=== PATIENT | male | born 1975 | race African-American/Black ===

== ENCOUNTER 2017-09-04 09:15 | Emergency (ER) | payer SELFPAY ==
[2017-09-04] MEDS ORDERED: Acetaminophen 500 MG TAB ONE (09:43)
[2017-09-04] MEDS ORDERED: Ibuprofen 800 MG TAB ONE (09:43)
== END 2017-09-04 10:19 | disposition home or self-care (01) ==
LOC: ERS 09:15
DX: M79.672 Pain in left foot (principal); M79.671 Pain in right foot; M62.838 Other muscle spasm
CPT/HCPCS: 99283

== ENCOUNTER 2017-11-29 03:34 | Inpatient (IN) | payer SELFPAY ==
[2017-11-29] MEDS ORDERED: Ondansetron ODT 8 MG TAB ONE (04:01)
[2017-11-29 04:07] LABS: #Lymphocytes 1.3 thou/uL (1.20-3.40); #Monocytes 0.5 thou/uL (0.11-0.59); #Neutrophils 9.4 thou/uL (1.40-6.50); %Basophils 0.3 % (0.0-1.0); %Eosinophils 0.2 % (0.0-10.0); %Lymphocytes 11.5 % (21.0-51.0); %Monocytes 4.7 % (0.0-10.0); %Neutrophils 83.4 % (42.0-75.0); Hemoglobin 17.2 g/dL (14.0-18.0); Mean Corpuscular HGB CONC 35.5 g/dL (32.0-36.0); Mean Corpuscular Hemoglobin 31.9 pg (27.0-31.0); Mean Corpuscular Volume 89.9 fL (78.0-98.0); Mean Platelet Volume 6.6 fL (7.4-10.4); Platelet Count 356 thou/uL (130-400); RBC Distribution Width 11.6 % (11.5-14.5); Red Blood Cell (RBC) Count 5.39 mill/uL (4.70-6.10); White Blood Cell (WBC) Count 11.3 thou/uL (4.8-10.8)
[2017-11-29 04:26] LABS: ALT (SGPT) 20 U/L (8-55); AST (SGOT) 24 U/L (5-34); Albumin 6.2 g/dL (3.5-5.0); Alkaline Phosphatase 71 U/L (40-150); Anion Gap 23 mmol/L (10-20); BUN (Urea Nitrogen) 34 mg/dL (8.9-20.6); Bilirubin, Total 0.5 mg/dL (0.2-1.2); CK (CPK) 365 U/L (30-200); Calc. Creatinine Clearance 0 mL/min (70-130); Calcium 10.8 mg/dL (7.8-10.44); Carbon Dioxide 20 mmol/L (22-29); Chloride 100 mmol/L (98-107); Estimated GFR-MDRD 24; Globulin 5.1 g/dL (2.4-3.5); Glucose 107 mg/dL (70-105); Protein, Total 11.3 g/dL (6.0-8.3); Sodium 135 mmol/L (136-145)
[2017-11-29 04:34] LABS: Potassium 7.9 mmol/L (3.5-5.1)
[2017-11-29] MEDS ORDERED: Dextrose 50% Abboject 50 ML SYRINGE ONE (04:41)
[2017-11-29] MEDS ORDERED: Sodium Bicarb 50 MEQ/50 ML Abboject 8.4% SYRINGE ONE ×2 (04:41→07:48)
[2017-11-29] MEDS ORDERED: Insulin Regular 300 UNITS/3 ML VIAL ONE (04:41)
[2017-11-29] MEDS ORDERED: Calcium Gluc 4.6 MEQ/10 ML (100 MG/ML) ONE ×2 (04:41→07:43)
[2017-11-29] MEDS ORDERED: Acetaminophen 325 MG TAB PO PRN (05:15)
[2017-11-29] MEDS ORDERED: Ondansetron HCl/PF 4 MG/2 ML Vial IVP PRN (05:15)
[2017-11-29] MEDS ORDERED: Sodium Chloride 0.9% 1,000 ML IV SCH ×3 (05:30→12:00)
[2017-11-29] MEDS ORDERED: Dextrose 50% Abboject 50 ML SYRINGE SLOW IVP PRN (06:14)
[2017-11-29] MEDS ORDERED: Insulin Regular 300 UNITS/3 ML VIAL SC PRN (06:14)
[2017-11-29] MEDS ORDERED: Dextrose 5% in Water 1,000 ML IV PRN (06:14)
[2017-11-29] MEDS ORDERED: Dextrose 5% in Water 1,000 ML IV SCH (06:15)
[2017-11-29] MEDS ORDERED: Dextrose 5 % And 0.9 % NaCl 1,000 ML IV SCH (06:45)
[2017-11-29 07:27] LABS: Albumin 6.2 g/dL (3.5-5.0); Anion Gap 25 mmol/L (10-20); BUN (Urea Nitrogen) 35 mg/dL (8.9-20.6); BUN/Creatinine Ratio 10.12; Calc. Creatinine Clearance 0 mL/min (70-130); Calcium 10.7 mg/dL (7.8-10.44); Carbon Dioxide 20 mmol/L (22-29); Chloride 100 mmol/L (98-107); Estimated GFR-MDRD 24; Glucose 85 mg/dL (70-105); Phosphorus 4.6 mg/dL (2.3-4.7); Sodium 137 mmol/L (136-145)
[2017-11-29 07:33] LABS: Potassium 7.7 mmol/L (3.5-5.1)
[2017-11-29] MEDS ORDERED: Sodium Bicarbonate 2.5 MEQ/5 ML VIAL ONE (07:43)
--- NOTE | 2017-11-29 08:34 | ULT ---
BILATERAL RENAL ULTRASOUND: Date: 11/29/17 CLINICAL HISTORY: Acute renal failure. FINDINGS: There is no hydronephrosis involving the kidneys. No suspicious renal lesions. Documented left renal length is 11.5 cm and right renal length is 11.6 cm. Pre-void bladder volume is 134 cm2. IMPRESSION: No overt hydronephrosis of either kidney. POS: [facility]
[2017-11-29] MEDS ORDERED: Heparin 5,000 UNITS/ML VIAL SC SCH (09:00)
[2017-11-29 09:52] LABS: Hemoglobin A1c 5.8 % (4.0-6.0)
[2017-11-29 10:18] VITALS: BMI 22.1
[2017-11-29 10:26] LABS: Actual Bicarbonate (HCO3a) 22.4 mEq/L (22-28); Base Excess (BEa) -2.3 mEq/L (-2.0 to +3.0); CO2 Tension 38.2 mmHg (35.0-45.0); O2 Tension (PaO2) 75.7 mmHg (80.0-100.0); pH, Arterial 7.38 (7.35-7.45)
[2017-11-29 10:27] LABS: Anion Gap 12 mmol/L (10-20); BUN (Urea Nitrogen) 26 mg/dL (8.9-20.6); Calc. Creatinine Clearance 51 mL/min (70-130); Calcium 8.9 mg/dL (7.8-10.44); Carbon Dioxide 24 mmol/L (22-29); Chloride 107 mmol/L (98-107); Estimated GFR-MDRD 47; Glucose 95 mg/dL (70-105); Potassium 4.1 mmol/L (3.5-5.1); Sodium 139 mmol/L (136-145)
[2017-11-29 10:27] LABS: Calcium, Ionized 1.2 mmol/L (1.12-1.30); Puncture Site RRA
[2017-11-29 11:56] LABS: Bilirubin Negative (Negative); Blood, Urine Negative (Negative); Clarity CLEAR (Clear); Glucose, Urine (Dipstick) Negative (Negative); Leukocyte Negative (Negative); Nitrite Negative (Negative); Protein, Urine (Dipstick) Negative (Neg-Trace); Specific Gravity, Urine 1.017 (1.002-1.036)
[2017-11-29 12:07] LABS: Cocaine Metabolite Screen Detected (NotDetected); Medtox Reader # READER 4; Phencyclidine (PCP) Not Detected (NotDetected); THC/Cannabinoid Screen Not Detected (NotDetected)
[2017-11-29 12:08] LABS: Amphetamine Not Detected (NotDetected); Barbiturates Screen Not Detected (NotDetected); Benzodiazepine Screen Not Detected (NotDetected); Medtox Control Line Valid? VALID (VALID); Methadone Not Detected (NotDetected); Methamphetamine Not Detected (NotDetected); Opiate Screen Not Detected (NotDetected); Oxycodone Screen Not Detected (NotDetected); Tricyclic Screen Not Detected (NotDetected)
--- NOTE | 2017-11-29 12:14 | HP ---
CODE STATUS: FULL CODE. TIME OF EVALUATION: 5:50 a.m. PRIMARY CARE PHYSICIAN: None. CHIEF COMPLAINT: Generalized muscle aches. HISTORY OF PRESENT ILLNESS: This is a 42-year-old male patient with significant past medical history , came to the hospital after having severe generalized muscle aches, the symptoms have been present f or the past 2-3 days. He got some improvement and yesterday he developed again severe symptoms, no c lear triggers, no alleviating factors. Patient reported that he had been working outside, not drinki ng appropriately enough fluids. Symptoms were reported as severe. Initial lab seen in the ER was do ne. Potassium was 7.9, creatinine 3.3. Aggressive hydration has been started. Dr. Vogt is being consulted for recommendations. Treatment for hyperkalemia has been given and repeat potassium around 7 a.m. REVIEW OF SYSTEMS: Constitutional: No fever or chills. Patient has generalized weakness, generaliz ed body aches. Respiratory: No cough, sputum production, shortness of breath. Cardiovascular: No chest pain, palpitation, shortness of breath. Gastrointestinal: No nausea, vomiting, diarrhea. Pat ient reported abdominal pain, cramps like. Central Nervous System: No dizziness, headache, or feeli ng lightheaded. Genitourinary: No burning on urination. Extremities: No leg swelling. All other systems were reviewed and negative except for the findings mentioned above. PAST MEDICAL HISTORY: None reported. SOCIAL HISTORY: No drugs or alcohol. PAST SURGICAL HISTORY: Right hand surgery long time ago. FAMILY HISTORY: Mother, CVA. Father, no medical problems. ALLERGIES: No known drug allergies. REPORTED MEDICATIONS: None. PHYSICAL EXAMINATION: VITAL SIGNS: On presentation, blood pressure 156/87 with heart rate 78, respiratory rate of 16, temp erature 98. GENERAL APPEARANCE: Patient is alert, oriented, in no acute distress. HEENT: Eyes: Normocephalic, conjunctivae. Dry oral mucosa. anicteric. NECK: No JVD. RESPIRATORY: Bilateral air entry. No rales, no wheezing. Symmetrical expansion. CARDIOVASCULAR: Normal rate, regular rhythm. No murmurs, no gallop. No edema. ABDOMEN: Soft, normal bowel sounds. MUSCULOSKELETAL: The patient has generalized muscle contractions, aches, tenderness. SKIN: Warm and intact. No pallor, no rash, no redness. NEUROLOGIC: Baseline sensory. No evidence of any new focal weakness. Speech is baseline. Cranial nerves seem to be intact. PSYCHIATRIC: Good mood. No anxiety. Oriented, optimal judgment. LABORATORY AND DIAGNOSTIC DATA: Reviewed. The patient has a white count 11, hemoglobin 17, platelet count 356,000. Chemistry: Sodium 135, potassium 7.9, chloride 100, carbon dioxide 20, anion gap 23 , BUN 34, creatinine 3.3, GFR 24, glucose __, the repeat one was 41 after giving the insulin for brandie tment , calcium 10.8. CK 365. Serum total protein 11, albumin 6.2, globulin 5.1. EKG was revi ewed and discussed with the performing physician from ER. Patient has normal sinus rhythm with aníbal d T waves. No other significant findings. ASSESSMENT AND PLAN: Critical care time for this patient more than 35 minutes in bedside assessment, coordination of care, review elaboration of records. 1. Severe hyperkalemia, likely secondary to dehydration, acute kidney failure, potassium now 7, rece iving treatment for both dehydration and hyperkalemia, Dr. Duenas has been called, we will repeat potassium, depending on the results, we will plan for further treatment. We will follow Dr. Cam rios's recommendations. 2. Acute kidney injury, significant elevation of creatinine with decrease of GFR, likely secondary t o dehydration, will hydrate, monitor kidney function, Dr. Duenas has been consulted. We will fol low recommendations. 3. Avoid nephrotoxic agents. 4. Hyponatremia, likely secondary to insulin given for treatment of hyperkalemia and acute kidney in jury, patient is fully oriented, we will put the patient on the D5 NS for now, will monitor care. 5. Deep vein thrombosis prophylaxis. 6. Dehydration. The patient has hyperkalemia, hypercalcemia, elevated proteins and albumin, acute k idney injury, dry mucosa, continue IV fluids.
[2017-11-29] MEDS: Sodium Chloride 0.45% 1,000 ML IV SCH ×2 (13:33→20:57)
--- NOTE | 2017-11-29 14:56 | PDOC.EVN ---
Event Note - Event Note Event Note: pt seen and examined.chart reviewed in detail.case discussed w nephrology NAD CTA b/l. RRR labs reviewed. repeat K NL. leanne dehydration with or without cocaine induced vasospasm Checked UA and no Proteinuria. check SPEP/UPEP given hypercalcemia and hyperproteinemia. cont IVF. HD stable. transfer out of CCU am labs
--- NOTE | 2017-11-29 22:14 | CON ---
DATE OF CONSULTATION: 11/29/2017 HISTORY OF PRESENT ILLNESS: Mr. Buck is a 42-year-old male, who presented with severe myalgias, present for several days. He says he has been working out in the heat, not drinking enough liquids. He also has a drug screen positive for cocaine, but it is unclear to me whether where and when this was fitted into the picture. Regular lab showed an elevated potassium this morning. Blood gas was drawn when I arrived to do the consult and his potassium was just barely over 4 via blood gas. He has been hydrated. PAST MEDICAL HISTORY: Otherwise unremarkable. He says he has been healthy. FAMILY HISTORY: Positive for vascular disease. SOCIAL HISTORY: Obviously he is using drugs, denies being a smoker or drinker. REVIEW OF SYSTEMS: Otherwise negative. He says he has got a very mild headache and says his myalgias are dramatically improved. PHYSICAL EXAMINATION: VITAL SIGNS: Heart rate 75, blood pressure 120/69, respiratory rate is in the 20s, oximetry is 97 on room air. HEENT: Pupils are equal. Sclerae is anicteric. NECK: Supple. LUNGS: Clear. HEART: Regular rhythm, no S3. ABDOMEN: Soft and nontender. EXTREMITIES: No clubbing, cyanosis, or edema. NEUROLOGIC: Nonfocal. LABORATORY DATA: White count 11.3, hemoglobin 17.2, platelets 350, sodium 137, potassium was 7.7, chloride 100, bicarbonate 20, BUN 35, creatinine 3.46. At 09 :40 this morning, sodium was 139, potassium is down to 4.1, BUN is 26, creatinine 1.93. CPK was only 365. Protein was 11.3. IMPRESSION: Severe intravascular volume depletion with elevated potassium, elevated creatinine, elevated serum protein, elevated hemoglobin, and elevated calcium. This is all normalizing. I would continue with IV hydration. In my opinion, he is stable to move out of the critical care unit. Critical care time 30 minutes. ELZBIETA
[2017-11-30] MEDS: Sodium Chloride 0.45% 1,000 ML IV SCH ×4 (02:43→20:17)
[2017-11-30 05:05] LABS: Anion Gap 11 mmol/L (10-20); BUN (Urea Nitrogen) 17 mg/dL (8.9-20.6); Calc. Creatinine Clearance 82 mL/min (70-130); Calcium 9.3 mg/dL (7.8-10.44); Carbon Dioxide 24 mmol/L (22-29); Chloride 109 mmol/L (98-107); Estimated GFR-MDRD 81; Glucose 116 mg/dL (70-105); Potassium 4.3 mmol/L (3.5-5.1); Sodium 140 mmol/L (136-145)
[2017-11-30 05:45] LABS: #Eosinphils 0.1 thou/uL (0.0-0.7); #Lymphocytes 1.8 thou/uL (1.20-3.40); #Monocytes 0.4 thou/uL (0.11-0.59); #Neutrophils 2.6 thou/uL (1.40-6.50); %Eosinophils 2.5 % (0.0-10.0); %Monocytes 7.5 % (0.0-10.0); %Neutrophils 53.1 % (42.0-75.0); Hemoglobin 11.8 g/dL (14.0-18.0); Mean Corpuscular HGB CONC 33.3 g/dL (32.0-36.0); Mean Corpuscular Volume 93.3 fL (78.0-98.0); Mean Platelet Volume 6.9 fL (7.4-10.4); Platelet Count 245 thou/uL (130-400); RBC Distribution Width 11.7 % (11.5-14.5); Red Blood Cell (RBC) Count 3.79 mill/uL (4.70-6.10); White Blood Cell (WBC) Count 4.9 thou/uL (4.8-10.8)
--- NOTE | 2017-11-30 09:09 | CON ---
DATE OF CONSULTATION: 11/29/2017 CONSULTING PHYSICIAN: Yulissa Ramírez M.D. REQUESTING PHYSICIAN: Dr. Porter in the ER. REASON FOR CONSULTATION: Severe hyperkalemia as well as acute kidney injury. IMPRESSION: 1. Acute kidney injury. This is likely prerenal in the context of intravascular depletion. 2. Severe hyperkalemia related to low GFR plus potassium and possibly ingestion of potassium-c ontaining agent. 3. Severe dehydration, likely in the context of increased insensible loss and inadequate repletion. PLAN: 1. Aggressive IV fluid resuscitation. 2. Medical management for severe hyperkalemia including, but not limited to, calcium gluconate, give n the EKG changes, insulin, dextrose, Kayexalate and albuterol nebs. 3. If patient does not show significant improvement on medical management of the hyperkalemia, decis ion will be taken for renal replacement therapy. Meanwhile repeat the blood work. HISTORY OF PRESENT ILLNESS: History is that of a 42-year-old gentleman who was recently released fro m incarceration where he has been in for about 65 days. The patient claimed to have been outdoors an d possibly not well rehydrated. Patient presented with generalized muscle ache and on presentation w as noted to have severe hyperkalemia with potassium above 7. A repeat potassium came back at 7.7 wit h worsening anion gap metabolic acidosis. The patient also noted with elevated creatinine above 3. No history of kidney disease in this patient nor any baseline creatinine on record. As a result of t hese findings, decision has been taken to involve Renal in the management of this case. PAST MEDICAL HISTORY: Pretty much unremarkable. MEDICATIONS: None. ALLERGIES: No known drug allergy. FAMILY HISTORY: No family history of kidney disease. SOCIAL HISTORY: The patient just got released. 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 REVIEW OF SYSTEMS: As documented in the body of the history. Other systems were reviewed and found not to be significantly related to the presenting illness. PHYSICAL EXAMINATION: GENERAL: Patient was noted not to be in any obvious distress. VITAL SIGNS: Afebrile and hemodynamically stable, respiratory 16, O2 sat 98%, blood pressure 152/87, heart rate 78. HEENT: Unremarkable. CARDIOVASCULAR SYSTEM: First and heart sounds were heard. RESPIRATORY SYSTEM: Clear to auscultation. DIGESTIVE SYSTEM: Revealed a benign abdomen with positive bowel sounds. EXTREMITIES: No peripheral edema. SKIN: No new gross rash. LYMPHATICS: No peripheral lymphadenopathy. SUMMARY: A 42-year-old gentleman who presented here with severe hyperkalemia and evidence of acute k idney injury.
--- NOTE | 2017-11-30 14:00 | PDOC.PN ---
- Subjective Encounter Start Date: 11/30/17 Encounter Start Time: 13:59 Subjective: no new complaints. feels well - Objective Resuscitation Status: Resuscitation Status FULL:Full Resuscitation MAR Reviewed: Yes Vital Signs & Weight: Vital Signs (12 hours) Temp Pulse Resp BP Pulse Ox 11/30/17 08:00 97.4 F L 51 L 16 11/30/17 07:42 97.4 F L 51 L 16 124/51 L 96 Weight Admit Weight 158 lb 8.198 oz Weight 158 lb 8.198 oz Most Recent Monitor Data Heart Rate from ECG 64 NIBP 117/66 NIBP BP-Mean 83 Respiration from ECG 18 SpO2 99 I&O: 11/29/17 11/30/17 12/01/17 06:59 06:59 06:59 Intake Total 4686 180 Output Total 1800 Balance 2886 180 Result Diagrams: 11/30/17 04:07 11/30/17 04:07 Additional Labs: Accuchecks 11/30/17 11/29/17 11/29/17 05:04 21:03 16:59 POC Glucose 116 H 119 H 122 H labs reviewed Phys Exam - Physical Examination Constitutional: NAD HEENT: PERRLA, moist MMs, sclera anicteric, oral pharynx no lesions, 2+ tonsils Neck: no nodes, no JVD, supple, full ROM Respiratory: no wheezing, no rales, no rhonchi, clear to auscultation bilateral Cardiovascular: RRR, no significant murmur Gastrointestinal: soft, non-tender, no distention, positive bowel sounds Musculoskeletal: no edema, pulses present Neurological: non-focal, normal sensation, moves all 4 limbs Psychiatric: normal affect, A&O x 3 Skin: no rash Dx/Plan (1) AXEL (acute kidney injury) Code(s): N17.9 - ACUTE KIDNEY FAILURE, UNSPECIFIED Status: Acute (2) Hyperkalemia Code(s): E87.5 - HYPERKALEMIA Status: Acute (3) Hypercalcemia Code(s): E83.52 - HYPERCALCEMIA Status: Acute (4) Cocaine abuse Code(s): F14.10 - COCAINE ABUSE, UNCOMPLICATED Status: Acute - Plan improved.likley dehydration along w Cocaine induced AXEL> -: reduce IVF .monitor -: spep/upep sent but less liklet any CKD/gaamopathy as Ca and protein also NL -: DC innext 24 hrs if OK w Nephrology w OP f/u * . Review of Systems - Review of Systems Constitutional: negative: fever, chills, sweats, weakness, malaise, other ENT: negative: Ear Pain, Ear Discharge, Nose Pain, Nose Discharge, Nose Congestion, Mouth Pain, Mouth Swelling, Throat Pain, Throat Swelling, Other Respiratory: negative: Cough, Dry, Shortness of Breath, Hemoptysis, SOB with Excertion, Pleuritic Pain, Sputum, Wheezing Cardiovascular: negative: chest pain, palpitations, orthopnea, paroxysmal nocturnal dyspnea, edema, light headedness, other Gastrointestinal: negative: Nausea, Vomiting, Abdominal Pain, Diarrhea, Constipation, Melena, Hematochezia, Other Genitourinary: negative: Dysuria, Frequency, Incontinence, Hematuria, Retention , Other Musculoskeletal: negative: Neck Pain, Shoulder Pain, Arm Pain, Back Pain, Hand Pain, Leg Pain, Foot Pain, Other Skin: negative: Rash, Lesions, Esau, Bruising, Other Neurological: negative: Weakness, Numbness, Incoordination, Change in Speech, Confusion, Seizures, Other - Medications/Allergies Allergies/Adverse Reactions: Allergies Allergy/AdvReac Type Severity Reaction Status Date / Time No Known Drug Allergies Allergy Verified 11/29/17 05:26 Medications: Current Medications Acetaminophen (Tylenol) 650 mg PO Q4H PRN PRN Reason: Headache/Fever or Pain Last Admin: 11/29/17 20:58 Dose: 650 mg Glucagon (Glucagon) 1 mg IM PRN PRN PRN Reason: Hypoglycemia Dextrose/Water (D5w) 1,000 mls @ 0 mls/hr IV .Q0M PRN; As Directed PRN Reason: Hypoglycemia Sodium Chloride (1/2 Normal Saline) 1,000 mls @ 150 mls/hr IV .Q6H40M [facility] Last Admin: 11/30/17 09:28 Dose: 1,000 mls Ondansetron HCl (Zofran) 4 mg IVP Q6H PRN PRN Reason: Nausea/Vomiting Sodium Chloride (Flush - Normal Saline) 10 ml IVF Q12HR [facility] Last Admin: 11/30/17 09:28 Dose: Not Given Sodium Chloride (Flush - Normal Saline) 10 ml IVF PRN PRN PRN Reason: Saline Flush
--- NOTE | 2017-11-30 22:50 | PRG ---
DATE OF SERVICE: 11/30/2017 SUBJECTIVE: Patient is seen and examined with no new complaints, seems to be doing very well, noted with following vital signs. PHYSICAL EXAMINATION: VITAL SIGNS: Afebrile with temperature 98.7, pulse 54, respiratory rate of 18, O2 sat 98%, blood pre ssure 144/93. HEENT: Unremarkable. Moist oral mucosa. NECK: Supple. CARDIOVASCULAR: First and heart sounds were heard. LABORATORY INVESTIGATION: Revealed creatinine of 1.2 and potassium 4.3. IMPRESSION: 1. Acute kidney injury. This is likely due to dehydration, but has recovered. 2. Hyperkalemia. PLAN: From the renal standpoint, the patient is good for discharge with the plan for followup as an outpatient.
[2017-12-01 05:14] LABS: Anion Gap 13 mmol/L (10-20); BUN (Urea Nitrogen) 14 mg/dL (8.9-20.6); Calc. Creatinine Clearance 94 mL/min (70-130); Calcium 9.3 mg/dL (7.8-10.44); Carbon Dioxide 24 mmol/L (22-29); Chloride 108 mmol/L (98-107); Estimated GFR-MDRD Greater than 90; Glucose 107 mg/dL (70-105); Sodium 141 mmol/L (136-145)
[2017-12-01] MEDS: Sodium Chloride 0.45% 1,000 ML IV SCH (05:32)
[2017-12-01] MEDS ORDERED: Acetaminophen 650 MG/20.3 ML UDCUP PO SCH (09:15)
--- NOTE | 2017-12-01 11:37 | ULT ---
RIGHT UPPER EXTREMITY DOPPLER ULTRASOUND: Garrett scale Doppler color flow and spectral analysis performed. INDICATION: Right upper extremity pain. FINDINGS: There is diffuse thrombus involving the imaged cephalic vein of the right arm. This is predominantly occlusive. The remaining, visualized venous structures of right upper extremity reveal compressibil ity and flow. IMPRESSION: Extensive thrombosis involving the cephalic vein of the right arm. Findings conveyed to Dr. Alcaraz. POS: [facility]
[2017-12-01 15:16] VITALS: BP 165/104; TEMP 97.2
--- NOTE | 2017-12-01 21:16 | DIS ---
DATE OF ADMISSION: 11/29/2017 DATE OF DISCHARGE: 12/01/2017 PRIMARY CARE PROVIDER: None. ADMITTING DIAGNOSES: 1. Acute renal failure. 2. Hyperkalemia. 3. Superficial thrombophlebitis. 4. Dehydration. DISCHARGE DIAGNOSIS: Rhabdomyolysis. CONSULTATIONS DURING THIS HOSPITALIZATION: Nephrology, Dr. Ramírez and Pulmonology, Dr. Masters. CONDITION OF PATIENT ON THE DAY OF DISCHARGE: Stable. I assessed Mr. Buck on the day of discharge . He denies any chest pain or shortness of breath. He denies any fevers or chills. He reports sore ness over the right arm. PHYSICAL EXAMINATION: VITAL SIGNS: Stable, he is afebrile. CARDIOVASCULAR: S1 and S2 are heard, regular. LUNGS: Clear to auscultation bilaterally. MUSCULOSKELETAL: Right upper extremity is mildly tender above the elbow, there is no elevated temper ature. HOSPITAL COURSE: Mr. Buck is a pleasant 42-year-old gentleman who was admitted to [facility] on 11/29/2017 for hyperkalemia and acute renal failure. He was also dehydrated. U [facility] toxicology screen was positive for cocaine. He was seen by Nephrology Service. Renal ultrasound on 11/29/2017 did not show any hydronephrosis of either kidney. He was treated with intravenous fluids, with resolution of acute renal failure and h yperkalemia. He also had elevated CK at the time of admission, and rhabdomyolysis was resolved by th day of discharge. He had soreness over the right upper arm on the day of discharge. Vascular ultr asound showed extensive thrombosis involving the cephalic vein of the right arm. He has been started on anti-inflammatory agents. I am also giving him a prescription for Keflex and have advised him to follow up with primary care provider in 3-5 days. At the time of this dictation, protein electrophoresis studies of both serum and urine were pending. He is advised to follow up with primary care provider for the reports. On the day of discharge, he has sodium 141, potassium 4, creatinine 1.05, and blood urea nitrogen of 14. DISCHARGE DESTINATION: Home. TOTAL AMOUNT OF TIME SPENT COORDINATING THIS DISCHARGE: 32 minutes.
--- NOTE | 2017-12-02 00:50 | EKG ---
Test Reason : K Blood Pressure : / mmHG Vent. Rate : 077 BPM Atrial Rate : 077 BPM P-R Int : 182 ms QRS Dur : 086 ms QT Int : 380 ms P-R-T Axes : 070 054 057 degrees QTc Int : 430 ms Normal sinus rhythm Moderate voltage criteria for LVH, may be normal variant Peaked T waves Borderline ECG Confirmed by LAKESHA MELÉNDEZ ([id number]), online editor SILVESTRE MATUTE ([id number]) on 12/02/2017 12:49:31 AM Referred By: RIKA Confirmed By:LAKESHA MELÉNDEZ
--- NOTE | 2017-12-02 00:51 | EKG ---
Test Reason : Blood Pressure : / mmHG Vent. Rate : 086 BPM Atrial Rate : 086 BPM P-R Int : 176 ms QRS Dur : 092 ms QT Int : 400 ms P-R-T Axes : 059 021 042 degrees QTc Int : 478 ms Normal sinus rhythm Prolonged QT Peaked T waves resolved Abnormal ECG Confirmed by LAKESHA MELÉNDEZ ([id number]), shovel oiler SILVESTRE MATUTE ([id number]) on 12/02/2017 12:50:56 AM Referred By: Confirmed By:LAKESHA MELÉNDEZ
[2017-12-03 11:20] LABS: Albumin-Ur 31.1 % (.); Alpha 1 - Ur 5.8 % (.); Alpha 2 - Ur 14.8 % (.); Beta-Ur 23.9 % (.); Gamma-Ur 24.4 % (.); M-Spike,% Not Observed % (Not Observed); Protein, Urine 7.6 mg/dL (Not Estab.)
[2017-12-03 14:27] LABS: A/G Ratio 1.1 (0.7-1.7); Albumin 3.6 g/dL (2.9-4.4); Alpha 1 0.2 g/dL (0.0-0.4); Alpha 2 0.7 g/dL (0.4-1.0); Gamma 1.3 g/dL (0.4-1.8); Globulin, Total 3.2 g/dL (2.2-3.9); M-Spike Not Observed g/dL (Not Observed)
== END 2017-12-01 15:28 | disposition home or self-care (01) | DRG 683 ==
LOC: ERS 03:34 → CCU 05:15 → T4-B 18:03
PROVIDERS: ADMIT Hospitalist; ATTEND Hospitalist
DX: N17.9 Acute kidney failure, unspecified (principal); M62.82 Rhabdomyolysis; E87.1 Hypo-osmolality and hyponatremia; E87.5 Hyperkalemia; E86.0 Dehydration; F14.10 Cocaine abuse, uncomplicated; E83.52 Hypercalcemia
CPT/HCPCS: 36415; 36416; 76770; 80048; 80053; 80306; 81003; 82550; 82805; 83036; 84165; 84166; 85025; 93005; 96361; 96365; 96375; 96376; J1815; J2405

== ENCOUNTER 2017-12-03 07:57 | Emergency (ER) | payer SELFPAY ==
[2017-12-03 08:41] LABS: #Eosinphils 0.1 thou/uL (0.0-0.7); #Lymphocytes 1.6 thou/uL (1.20-3.40); #Monocytes 0.6 thou/uL (0.11-0.59); #Neutrophils 5.5 thou/uL (1.40-6.50); %Basophils 0.4 % (0.0-1.0); %Eosinophils 1.9 % (0.0-10.0); %Lymphocytes 20.4 % (21.0-51.0); %Monocytes 7.8 % (0.0-10.0); %Neutrophils 69.5 % (42.0-75.0); Hemoglobin 13.7 g/dL (14.0-18.0); Mean Corpuscular HGB CONC 34.2 g/dL (32.0-36.0); Mean Corpuscular Hemoglobin 31.3 pg (27.0-31.0); Mean Corpuscular Volume 91.5 fL (78.0-98.0); Mean Platelet Volume 6.5 fL (7.4-10.4); Platelet Count 322 thou/uL (130-400); RBC Distribution Width 11.7 % (11.5-14.5); Red Blood Cell (RBC) Count 4.39 mill/uL (4.70-6.10)
[2017-12-03 09:09] LABS: ALT (SGPT) 15 U/L (8-55); AST (SGOT) 22 U/L (5-34); Albumin 4.7 g/dL (3.5-5.0); Alkaline Phosphatase 61 U/L (40-150); Anion Gap 13 mmol/L (10-20); BUN (Urea Nitrogen) 23 mg/dL (8.9-20.6); Bilirubin, Total 0.5 mg/dL (0.2-1.2); CK (CPK) 440 U/L (30-200); Calc. Creatinine Clearance 0 mL/min (70-130); Calcium 9.4 mg/dL (7.8-10.44); Carbon Dioxide 25 mmol/L (22-29); Chloride 104 mmol/L (98-107); Estimated GFR-MDRD 52; Globulin 3.8 g/dL (2.4-3.5); Glucose 89 mg/dL (70-105); Potassium 4.4 mmol/L (3.5-5.1); Protein, Total 8.5 g/dL (6.0-8.3); Sodium 138 mmol/L (136-145)
== END 2017-12-03 10:16 | disposition home or self-care (01) ==
LOC: ERS 07:57
DX: E86.0 Dehydration (principal); R25.2 Cramp and spasm; F17.210 Nicotine dependence, cigarettes, uncomplicated; F14.10 Cocaine abuse, uncomplicated
CPT/HCPCS: 36415; 80053; 82550; 85025; 93005; 96360

== ENCOUNTER 2017-12-22 08:49 | Emergency (ER) | payer SELFPAY ==
[2017-12-22 10:38] LABS: #Eosinphils 0.1 thou/uL (0.0-0.7); #Lymphocytes 1.5 thou/uL (1.20-3.40); #Monocytes 0.4 thou/uL (0.11-0.59); #Neutrophils 3.4 thou/uL (1.40-6.50); %Basophils 0.3 % (0.0-1.0); %Eosinophils 1.6 % (0.0-10.0); %Lymphocytes 27.4 % (21.0-51.0); %Neutrophils 62.8 % (42.0-75.0); Hemoglobin 13.1 g/dL (14.0-18.0); Mean Corpuscular HGB CONC 34.9 g/dL (32.0-36.0); Mean Corpuscular Hemoglobin 32.3 pg (27.0-31.0); Mean Corpuscular Volume 92.7 fL (78.0-98.0); Mean Platelet Volume 6.4 fL (7.4-10.4); Platelet Count 285 thou/uL (130-400); RBC Distribution Width 12.7 % (11.5-14.5); Red Blood Cell (RBC) Count 4.06 mill/uL (4.70-6.10); White Blood Cell (WBC) Count 5.5 thou/uL (4.8-10.8)
--- NOTE | 2017-12-22 10:49 | RAD ---
PORTABLE CHEST: HISTORY: Cough. FINDINGS: The lungs are clear. Heart and mediastinum appear normal. Osseous structures unremarkable. IMPRESSION: Unremarkable chest. POS: [facility]
[2017-12-22] MEDS ORDERED: Acetaminophen 325 MG TAB ONE (10:51)
[2017-12-22 10:52] LABS: ALT (SGPT) 12 U/L (8-55); AST (SGOT) 23 U/L (5-34); Albumin 4.9 g/dL (3.5-5.0); Alkaline Phosphatase 67 U/L (40-150); Anion Gap 10 mmol/L (10-20); BUN (Urea Nitrogen) 27 mg/dL (8.9-20.6); Bilirubin, Total 0.6 mg/dL (0.2-1.2); Calc. Creatinine Clearance 0 mL/min (70-130); Calcium 9.6 mg/dL (7.8-10.44); Carbon Dioxide 28 mmol/L (22-29); Chloride 104 mmol/L (98-107); Estimated GFR-MDRD 52; Globulin 3.7 g/dL (2.4-3.5); Glucose 107 mg/dL (70-105); Potassium 3.9 mmol/L (3.5-5.1); Protein, Total 8.6 g/dL (6.0-8.3); Sodium 138 mmol/L (136-145)
== END 2017-12-22 12:15 | disposition home or self-care (01) ==
LOC: ERS 08:49
DX: J02.9 Acute pharyngitis, unspecified (principal); F17.210 Nicotine dependence, cigarettes, uncomplicated
CPT/HCPCS: 36415; 71045; 80053; 85025; 93005

== ENCOUNTER 2017-12-26 16:27 | Emergency (ER) | payer SELFPAY ==
[2017-12-26 17:58] LABS: #Basophils 0.1 thou/uL (0.0-0.2); #Eosinphils 0.2 thou/uL (0.0-0.7); #Lymphocytes 1.4 thou/uL (1.20-3.40); #Monocytes 0.4 thou/uL (0.11-0.59); %Basophils 1.4 % (0.0-1.0); %Eosinophils 4.4 % (0.0-10.0); %Lymphocytes 35.1 % (21.0-51.0); %Monocytes 9.8 % (0.0-10.0); %Neutrophils 49.4 % (42.0-75.0); Hemoglobin 12.2 g/dL (14.0-18.0); Mean Corpuscular HGB CONC 34.6 g/dL (32.0-36.0); Mean Corpuscular Hemoglobin 32.1 pg (27.0-31.0); Mean Corpuscular Volume 92.9 fL (78.0-98.0); Mean Platelet Volume 6.3 fL (7.4-10.4); Platelet Count 311 thou/uL (130-400); RBC Distribution Width 12.7 % (11.5-14.5); Red Blood Cell (RBC) Count 3.79 mill/uL (4.70-6.10); White Blood Cell (WBC) Count 4.1 thou/uL (4.8-10.8)
[2017-12-26 18:19] LABS: ALT (SGPT) 13 U/L (8-55); AST (SGOT) 17 U/L (5-34); Albumin 4.3 g/dL (3.5-5.0); Alkaline Phosphatase 67 U/L (40-150); Anion Gap 11 mmol/L (10-20); BUN (Urea Nitrogen) 24 mg/dL (8.9-20.6); Bilirubin, Total 0.3 mg/dL (0.2-1.2); CK (CPK) 213 U/L (30-200); Calc. Creatinine Clearance 0 mL/min (70-130); Calcium 9.1 mg/dL (7.8-10.44); Carbon Dioxide 24 mmol/L (22-29); Chloride 109 mmol/L (98-107); Estimated GFR-MDRD 62; Globulin 3.2 g/dL (2.4-3.5); Glucose 102 mg/dL (70-105); Potassium 4.3 mmol/L (3.5-5.1); Protein, Total 7.5 g/dL (6.0-8.3); Sodium 140 mmol/L (136-145)
== END 2017-12-26 18:45 | disposition home or self-care (01) ==
LOC: ERS 16:27
DX: J02.9 Acute pharyngitis, unspecified (principal); F17.210 Nicotine dependence, cigarettes, uncomplicated; Z71.6 Tobacco abuse counseling
CPT/HCPCS: 36415; 80053; 82550; 85025; 99406

== ENCOUNTER 2018-01-02 03:21 | Emergency (ER) | payer SELFPAY ==
[2018-01-02] MEDS ORDERED: Ketorolac Tromethamine 60 MG/2 ML VIAL ONE (04:44)
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
--- NOTE | 2018-01-02 09:25 | RAD ---
PORTABLE CHEST 1 VIEW: Date: 01/02/18 Time: 0320 hours HISTORY: Shortness of breath. FINDINGS/IMPRESSION: Comparison made with exam of 12/22/17. The heart size is normal. There is mild infiltrate in the left medial lung base. No pneumothoraces, l obar consolidation, or pleural effusions are seen. POS: [facility]
== END 2018-01-02 05:48 | disposition home or self-care (01) ==
LOC: ERS 03:21
DX: M79.671 Pain in right foot (principal); M79.672 Pain in left foot; F17.210 Nicotine dependence, cigarettes, uncomplicated
CPT/HCPCS: 71045; 93005; 96372; J1885

== ENCOUNTER 2018-01-05 14:26 | Emergency (ER) | payer SELFPAY ==
[2018-01-05 15:05] LABS: Hemoglobin 11.8 g/dL (14.0-18.0); Mean Corpuscular HGB CONC 34.4 g/dL (32.0-36.0); Mean Corpuscular Hemoglobin 32.1 pg (27.0-31.0); Mean Corpuscular Volume 93.4 fL (78.0-98.0); Mean Platelet Volume 6.3 fL (7.4-10.4); Platelet Count 347 thou/uL (130-400); RBC Distribution Width 13.5 % (11.5-14.5); Red Blood Cell (RBC) Count 3.67 mill/uL (4.70-6.10); White Blood Cell (WBC) Count 7.3 thou/uL (4.8-10.8)
[2018-01-05 15:18] LABS: Band 3 % (5-11); Lymphocytes 12 % (21-51); MDiff Complete? YES; Monocytes 7 % (0-10); Neutrophil 78 % (42-75); PLT Morphology Comment Appears Adequate; Polychromasia SLIGHT = 2-3 cells (100X) (0-2/hpf)
[2018-01-05 15:27] LABS: ALT (SGPT) 11 U/L (8-55); AST (SGOT) 16 U/L (5-34); Albumin 4.4 g/dL (3.5-5.0); Alkaline Phosphatase 63 U/L (40-150); Anion Gap 17 mmol/L (10-20); BUN (Urea Nitrogen) 17 mg/dL (8.9-20.6); Bilirubin, Total 0.5 mg/dL (0.2-1.2); CK (CPK) 262 U/L (30-200); Calc. Creatinine Clearance 0 mL/min (70-130); Calcium 9.5 mg/dL (7.8-10.44); Carbon Dioxide 21 mmol/L (22-29); Chloride 108 mmol/L (98-107); Estimated GFR-MDRD 63; Globulin 3.2 g/dL (2.4-3.5); Glucose 77 mg/dL (70-105); Potassium 4.1 mmol/L (3.5-5.1); Protein, Total 7.6 g/dL (6.0-8.3); Sodium 142 mmol/L (136-145)
[2018-01-05 15:31] LABS: Troponin I Less than 0.010 ng/mL (< 0.028)
--- NOTE | 2018-01-09 13:46 | EKG ---
Test Reason : Blood Pressure : / mmHG Vent. Rate : 095 BPM Atrial Rate : 095 BPM P-R Int : 150 ms QRS Dur : 094 ms QT Int : 374 ms P-R-T Axes : 061 017 048 degrees QTc Int : 469 ms Normal sinus rhythm Voltage criteria for left ventricular hypertrophy Abnormal ECG Confirmed by DEEDEE BAUMANN, GERALDINE ([id number]), editorial cartoonist SILVESTRE MATUTE ([id number]) on 01/09/2018 1:45:29 PM Referred By: Confirmed By:GERALDINE MARK MD
== END 2018-01-05 16:10 | disposition home or self-care (01) ==
LOC: ERS 14:26
DX: E86.0 Dehydration (principal); I10 Essential (primary) hypertension; F17.210 Nicotine dependence, cigarettes, uncomplicated; Z71.6 Tobacco abuse counseling
CPT/HCPCS: 36415; 80053; 82550; 82553; 84484; 85025; 93005; 96360; 99406

== ENCOUNTER 2018-03-20 00:40 | Emergency (ER) | payer SELFPAY ==
[2018-03-20 01:59] LABS: #Basophils 0.1 thou/uL (0.0-0.2); #Eosinphils 0.1 thou/uL (0.0-0.7); #Lymphocytes 1.3 thou/uL (1.20-3.40); #Monocytes 0.4 thou/uL (0.11-0.59); #Neutrophils 5.7 thou/uL (1.40-6.50); %Eosinophils 0.8 % (0.0-10.0); %Lymphocytes 17.5 % (21.0-51.0); %Monocytes 4.7 % (0.0-10.0); Hemoglobin 13.3 g/dL (14.0-18.0); Mean Corpuscular HGB CONC 34.5 g/dL (32.0-36.0); Mean Corpuscular Hemoglobin 32.6 pg (27.0-31.0); Mean Corpuscular Volume 94.6 fL (78.0-98.0); Mean Platelet Volume 6.9 fL (7.4-10.4); Platelet Count 315 thou/uL (130-400); RBC Distribution Width 11.9 % (11.5-14.5); Red Blood Cell (RBC) Count 4.07 mill/uL (4.70-6.10); White Blood Cell (WBC) Count 7.4 thou/uL (4.8-10.8)
[2018-03-20 02:20] LABS: ALT (SGPT) 15 U/L (8-55); AST (SGOT) 29 U/L (5-34); Acetaminophen Less than 6.0 mcg/mL (10.0-30.0); Albumin 4.9 g/dL (3.5-5.0); Alcohol Less than 10 mg/dL (Less than 10); Alkaline Phosphatase 65 U/L (40-150); Anion Gap 17 mmol/L (10-20); BUN (Urea Nitrogen) 25 mg/dL (8.9-20.6); Bilirubin, Total 0.9 mg/dL (0.2-1.2); Calc. Creatinine Clearance 0 mL/min (70-130); Calcium 9.9 mg/dL (7.8-10.44); Carbon Dioxide 21 mmol/L (22-29); Chloride 103 mmol/L (98-107); Estimated GFR-MDRD 65; Globulin 3.5 g/dL (2.4-3.5); Glucose 84 mg/dL (70-105); Potassium 3.8 mmol/L (3.5-5.1); Protein, Total 8.4 g/dL (6.0-8.3); Salicylate Less than 8.0 mg/dL (15.0-30.0); Sodium 137 mmol/L (136-145)
[2018-03-20 02:44] LABS: Bilirubin Negative (Negative); Blood, Urine Negative (Negative); Clarity CLEAR (Clear); Glucose, Urine (Dipstick) Negative (Negative); Leukocyte Negative (Negative); Nitrite Negative (Negative); Protein, Urine (Dipstick) Trace mg/dL (Neg-Trace); Specific Gravity, Urine 1.031 (1.002-1.036); Urobilinogen 0.2 mg/dL (0.2-1.0); pH, Urine 5.5 (5.0-9.0)
[2018-03-20 03:03] LABS: Amphetamine Not Detected (NotDetected); Barbiturates Screen Not Detected (NotDetected); Benzodiazepine Screen Not Detected (NotDetected); Cocaine Metabolite Screen Detected (NotDetected); Medtox Control Line Valid? VALID (VALID); Medtox Reader # READER 4; Methadone Not Detected (NotDetected); Methamphetamine Not Detected (NotDetected); Opiate Screen Not Detected (NotDetected); Oxycodone Screen Not Detected (NotDetected); Phencyclidine (PCP) Not Detected (NotDetected); THC/Cannabinoid Screen Not Detected (NotDetected); Tricyclic Screen Not Detected (NotDetected)
== END 2018-03-20 04:35 | disposition home or self-care (01) ==
LOC: ERS 00:40
DX: F14.120 Cocaine abuse with intoxication, uncomplicated (principal); I10 Essential (primary) hypertension; F17.210 Nicotine dependence, cigarettes, uncomplicated
CPT/HCPCS: 36415; 80053; 80306; 80307; 81003; 84443; 85025; 99285

== ENCOUNTER 2018-06-29 20:47 | Emergency (ER) | payer SELFPAY ==
[~2018-06-29 20:47] MED LIST: ISOVUE-370 76%-LOCM 1 ML ONE
[2018-06-29] MEDS ORDERED: Ondansetron ODT 8 MG TAB ONE (21:48)
[2018-06-29] MEDS ORDERED: Ketorolac Tromethamine 60 MG/2 ML VIAL ONE (21:48)
[2018-06-29] MEDS ORDERED: Ondansetron PF 4 MG/2 ML Vial ONE (21:53)
[2018-06-29 22:14] LABS: #Basophils 0.1 thou/uL (0.0-0.2); #Lymphocytes 0.7 thou/uL (1.20-3.40); #Monocytes 0.5 thou/uL (0.11-0.59); #Neutrophils 12.9 thou/uL (1.40-6.50); %Basophils 0.4 % (0.0-1.0); %Eosinophils 0.2 % (0.0-10.0); %Lymphocytes 4.7 % (21.0-51.0); %Monocytes 3.6 % (0.0-10.0); %Neutrophils 91.2 % (42.0-75.0); Hemoglobin 14.2 g/dL (14.0-18.0); Mean Corpuscular HGB CONC 33.2 g/dL (32.0-36.0); Mean Corpuscular Hemoglobin 31.1 pg (27.0-31.0); Mean Corpuscular Volume 93.7 fL (78.0-98.0); Platelet Count 276 thou/uL (130-400); RBC Distribution Width 12.5 % (11.5-14.5); Red Blood Cell (RBC) Count 4.57 mill/uL (4.70-6.10); White Blood Cell (WBC) Count 14.2 thou/uL (4.8-10.8)
[2018-06-29 22:29] LABS: ALT (SGPT) 45 U/L (8-55); AST (SGOT) 241 U/L (5-34); Albumin 5.2 g/dL (3.5-5.0); Alkaline Phosphatase 64 U/L (40-150); Anion Gap 24 mmol/L (10-20); BUN (Urea Nitrogen) 21 mg/dL (8.9-20.6); Bilirubin, Total 0.5 mg/dL (0.2-1.2); Calc. Creatinine Clearance 0 mL/min (70-130); Calcium 9.9 mg/dL (7.8-10.44); Carbon Dioxide 16 mmol/L (22-29); Chloride 103 mmol/L (98-107); Estimated GFR-MDRD 83; Globulin 3.9 g/dL (2.4-3.5); Glucose 102 mg/dL (70-105); Lipase 10 U/L (8-78); Potassium 5.7 mmol/L (3.5-5.1); Protein, Total 9.1 g/dL (6.0-8.3); Sodium 137 mmol/L (136-145)
[2018-06-29 22:30] LABS: Acetaminophen Less than 6.0 mcg/mL (10.0-30.0); Alcohol 25 mg/dL (Less than 10); Salicylate Less than 8.0 mg/dL (15.0-30.0)
--- NOTE | 2018-06-30 00:06 | CT ---
CT ABDOMEN AND PELVIS WITH IV CONTRAST: 06/29/18 HISTORY: Epigastric abdominal pain, vomiting and diarrhea. FINDINGS: The lung bases are clear. The liver demonstrated decreased echogenicity compared to the spleen consis tent with fatty infiltration. No hepatic masses, abnormal biliary ductal dilatation is seen. No calci fied gallstones are noted. The spleen, pancreas, adrenal glands and kidneys are normal. No free air, free fluid, or lymphadenopathy seen. A normal appearing appendix is noted. There are deg enerative changes in the lower lumbar spine. No aneurysmal dilatation of the abdominal aorta is seen. IMPRESSION: 1. Fatty liver. 2. No evidence of appendicitis. POS: [facility]
== END 2018-06-30 00:51 | disposition home or self-care (01) ==
LOC: ERS 20:47
DX: R10.9 Unspecified abdominal pain (principal); R51 Headache; I10 Essential (primary) hypertension
CPT/HCPCS: 74177; 80053; 80307; 83690; 85025; 96361; 96374; 96375; J1885; J2405; Q9966

== ENCOUNTER 2018-07-09 22:14 | Observation (INO) | payer SELFPAY ==
[2018-07-09] MEDS ORDERED: Lidocaine Viscous Sol 2% 15 ml UD Cup ONE (22:43)
[2018-07-09] MEDS ORDERED: Mag-Al 1200 mg/1200 mg/30 ML UDCUP ONE (22:43)
[2018-07-09 22:49] LABS: #Eosinphils 0.2 thou/uL (0.0-0.7); #Lymphocytes 1.7 thou/uL (1.20-3.40); #Monocytes 0.6 thou/uL (0.11-0.59); #Neutrophils 5.3 thou/uL (1.40-6.50); %Basophils 0.3 % (0.0-1.0); %Eosinophils 2.3 % (0.0-10.0); %Monocytes 7.5 % (0.0-10.0); %Neutrophils 67.8 % (42.0-75.0); Hemoglobin 13.8 g/dL (14.0-18.0); Mean Corpuscular HGB CONC 34.1 g/dL (32.0-36.0); Mean Corpuscular Hemoglobin 32.5 pg (27.0-31.0); Mean Corpuscular Volume 95.2 fL (78.0-98.0); Mean Platelet Volume 6.2 fL (7.4-10.4); Platelet Count 308 thou/uL (130-400); RBC Distribution Width 12.4 % (11.5-14.5); Red Blood Cell (RBC) Count 4.24 mill/uL (4.70-6.10); White Blood Cell (WBC) Count 7.8 thou/uL (4.8-10.8)
[2018-07-09 23:12] LABS: Acetaminophen Less than 6.0 mcg/mL (10.0-30.0); Alcohol Less than 10 mg/dL (Less than 10); Lipase 39 U/L (8-78); Salicylate Less than 8.0 mg/dL (15.0-30.0)
[2018-07-09 23:13] LABS: ALT (SGPT) 22 U/L (8-55); AST (SGOT) 29 U/L (5-34); Albumin 4.5 g/dL (3.5-5.0); Alkaline Phosphatase 61 U/L (40-150); Anion Gap 13 mmol/L (10-20); BUN (Urea Nitrogen) 19 mg/dL (8.9-20.6); Bilirubin, Total 0.9 mg/dL (0.2-1.2); Calc. Creatinine Clearance 0 mL/min (70-130); Calcium 9.5 mg/dL (7.8-10.44); Carbon Dioxide 25 mmol/L (22-29); Chloride 106 mmol/L (98-107); Estimated GFR-MDRD 71; Globulin 3.4 g/dL (2.4-3.5); Glucose 105 mg/dL (70-105); Potassium 3.9 mmol/L (3.5-5.1); Protein, Total 7.9 g/dL (6.0-8.3); Sodium 140 mmol/L (136-145)
[2018-07-09 23:33] LABS: CKMB 6.3 ng/mL (0-6.6)
--- NOTE | 2018-07-09 23:43 | RAD ---
PORTABLE CHEST: 07/09/18 HISTORY: Weakness. COMPARISON: 01/02/18. No evidence of infiltrate. Heart and mediastinum unremarkable. No effusion. IMPRESSION: No acute findings. POS: [facility]
[2018-07-09] MEDS ORDERED: Aspirin Chewable 81 MG TAB ONE (23:49)
--- NOTE | 2018-07-10 00:03 | PDOC.FPRHP ---
- History of Present Illness Chief Complaint: generalized weakness, leg cramps History of Present Illness: 42 yo homeless MAITE presents for generalized weakness and "not feeling well" with leg cramps that started around 7 PM this evening. Patient is somewhat poor historian, appears high. States he has had occasional chills, occasional night sweats, sore throat congestion, nausea and mid-epigastric pain. States the last time he used cocaine or marijuana was 3 days prior. States he drinks 32 oz beer daily, last drink was yesterday afternoon around 2PM. UDS in ED + for meth, cocaine, and marijuana. He recieved [id number], 1L NS, GI cocktail. EKG showed NSR. Trop indeterminate at .039. CBC and CMP wnl. - Allergies/Adverse Reactions Allergies Allergy/AdvReac Type Severity Reaction Status Date / Time No Known Drug Allergies Allergy Verified 07/10/18 03:08 - Home Medications Medication Instructions Recorded Confirmed Type No Known 07/10/18 07/10/18 History - History PMHx: none PSHx: rt thumb FHx: mother with CVA Social: 3-4 cig/day, 32 oz beer daily, cocaine and MJ used last 3 days prior. Homeless. - Review of Systems General: reports: fever/chills (chills, no fever), night sweats (occasional). denies: weight/appetite/sleep changes Eyes: reports: vision changes. denies: eye pain ENT: reports: nasal congestion. denies: rhinorrhea Respiratory: reports: congestion. denies: cough Cardiovascular: denies: chest pain, palpitation, edema Gastrointestinal: reports: nausea, abdominal pain. denies: vomiting, diarrhea, constipation, GI bleeding Genitourinary: denies: dysuria, other (hematuria) Skin: denies: rashes, lesions Musculoskeletal: reports: pain (legs bilat). denies: swelling Neurological: reports: numbness (fingertips occasionally), weakness (generalized ) Psychological: denies: anxiety, depression - Vital signs BP: [117/77] HR: [86] RR: [16] Tmax: [98.1] Pox: [99]% on [RA] Wt: [79.3 kg] - Physical Exam Constitutional: NAD, well developed, other (patient has odor of marijuana) HEENT: normocephalic and atraumatic, PERRLA, EOMI, conjunctiva clear, MMM, oropharynx clear, other (+tonsillar adenopathy, no erythema or exudate) Neck: supple, other (+LAD) Heart: RRR, normal S1/S2, no murmurs/rubs/gallops, pulses present, no edema Lungs: CTAB, no respiratory distress, good air movement, no rales/rhonchi, no wheezing, no retractions Abdomen: soft, non-tender, bowel sounds present, no masses/distention Musculoskeletal: normal structure, normal tone, ROM grossly normal Neurological: no focal deficit, CN II-XII intact, normal sensation Skin: no rash/lesions, good turgor, capillary refill <2 seconds Heme/Lymphatic: no unusual bruising or bleeding, no purpura Psychiatric: normal mood and affect, good judgment and insight, intact recent and remote memory FMR H&P: Results - Labs Result Diagrams: 07/09/18 22:41 07/09/18 22:41 Lab results: WBC 7.8 thou/uL (4.8-10.8) 07/09/18 22:41 Hgb 13.8 g/dL (14.0-18.0) L 07/09/18 22:41 Hct 40.4 % (42.0-52.0) L 07/09/18 22:41 MCV 95.2 fL (78.0-98.0) 07/09/18 22:41 Plt Count 308 thou/uL (130-400) 07/09/18 22:41 Neutrophils % 67.8 % (42.0-75.0) 07/09/18 22:41 Sodium 140 mmol/L (136-145) 07/09/18 22:41 Potassium 3.9 mmol/L (3.5-5.1) 07/09/18 22:41 Chloride 106 mmol/L (98-107) 07/09/18 22:41 Carbon Dioxide 25 mmol/L (22-29) 07/09/18 22:41 BUN 19 mg/dL (8.9-20.6) 07/09/18 22:41 Creatinine 1.35 mg/dL (0.7-1.3) H 07/09/18 22:41 Glucose 105 mg/dL (70-105) 07/09/18 22:41 Calcium 9.5 mg/dL (7.8-10.44) 07/09/18 22:41 Total Bilirubin 0.9 mg/dL (0.2-1.2) 07/09/18 22:41 AST 29 U/L (5-34) 07/09/18 22:41 ALT 22 U/L (8-55) 07/09/18 22:41 Alkaline Phosphatase 61 U/L (40-150) 07/09/18 22:41 CK-MB (CK-2) 6.3 ng/mL (0-6.6) 07/09/18 22:41 Serum Total Protein 7.9 g/dL (6.0-8.3) 07/09/18 22:41 Albumin 4.5 g/dL (3.5-5.0) 07/09/18 22:41 Lipase 39 U/L (8-78) 07/09/18 22:41 - EKG Interpretation EKG: NSR - Radiology Interpretation Chest x-ray Status: image reviewed by me, report reviewed by me Additional comment: wnl FMR H&P: A/P - Problem List (1) Elevated troponin Current Visit: Yes Status: Acute Code(s): R74.8 - ABNORMAL LEVELS OF OTHER SERUM ENZYMES (2) Methamphetamine abuse Current Visit: Yes Status: Acute Code(s): F15.10 - OTHER STIMULANT ABUSE, UNCOMPLICATED (3) Marijuana abuse Current Visit: Yes Status: Acute Code(s): F12.10 - CANNABIS ABUSE, UNCOMPLICATED (4) Tobacco abuse Current Visit: Yes Status: Acute Code(s): Z72.0 - TOBACCO USE (5) Tobacco abuse counseling Current Visit: Yes Status: Acute Code(s): Z71.6 - TOBACCO ABUSE COUNSELING (6) Cocaine abuse Current Visit: No Status: Acute Code(s): F14.10 - COCAINE ABUSE, UNCOMPLICATED (7) Alcohol abuse Current Visit: Yes Status: Acute Code(s): F10.10 - ALCOHOL ABUSE, UNCOMPLICATED (8) Dehydration Current Visit: Yes Status: Acute Code(s): E86.0 - DEHYDRATION - Plan Elevated Troponin - Likely 2/2 cocaine/meth use (UDS also + for marijuana) vs dehydration - Pt complains of generalized weakness, no CP - Heart score 3, EKG NSR, CXR WNL - Continue to trend trops - NPO for possible stress in AM if trops trend upwards - 1L NS in ED, MIVF LR @ 100 ml/hr - CPK, BNP pending - VSS - ASA given in ED - FLP in AM Mild dehydration - Fluids as above Multi drug abuse - Pt admitted to cocaine and Marijuana use, UDS also positive for methamphetamine - Pt appears high on exam - Counseled cessation Tobacco abuse - Counseled cessation Alcohol abuse - Initiate ASE scoring protocol - Pt states he drinks 32 oz beer daily, last drink around 2 PM yesterday afternoon Dispo: Admit to tele obs Diet: HH, NPO @ midnight DVT ppx: lovenox GI ppx: Ranitidine PCP: none, homeless Code status: FULL FMR H&P: Upper Level - Pertinent history 42 yo WM PMH HTN, polysubstance abuse, EtOH abuse, and homelessness. Presents with generalized weakness and upper abdominal pain that started at 1900 this evening. States last used marijuana and cocaine 3 days ago. Drinks 32 oz beer per day. ER: Labs, EKG, ASA, GI cocktail, NS 1L. - Pertinent findings Vitals: WNL GEN: NAD ENT: post nasal drip CV: RRR, no murmur Pulm: CTA-B, Normal effort Labs: trop 0.03 EKG: NSR CXR: No acute processes - Plan Date/Time: 07/10/18 0003 I, Richard Lu MD, have evaluated this patient and agree with findings/plan as outlined by journalism intern resident. Pertinent changes/additions are listed here. 1. Generalized weakness: Likely 2/2 exposure vs drug/alcohol use. Trop indeterminate. Will observe and trend trop x3. Will add BNP. Make NPO for possible stress test pending results of troponins. HEART SCORE 3 but poor outpatient follow up. 2. Elevated Trop: Trend x3 with EKG. Likely 2/2 dehydration 3. AXEL: IV LR at 125 mL/hr. Check CPK 4. EtOH abuse: ASE protocol 5. Polysubstance abuse: UDS pending 6. Dehydration: IV fluids 7. Homelessness: Case management to discuss resources. 8. HTN: med rec. 9. Diet: HH 10. PPx: lovenox 11. CODE: FULL Dispo: obs, Tele, <[address] Sarabia. Addendum - Attending - Attending Attestation Date/Time: 07/10/18 [id number] I personally evaluated the patient and discussed the management with Dr. Cheryl Christianson. I agree with the History, Examination, Assessment and Plan documented above with any addition or exceptions noted below. 42 y/o BM presented with weakness and leg cramps. Found to have an indeterminate troponin (but stable) with normal EKG and slightly elevation of BNP. Patient denied chest pain, dyspnea and edema. This am patient is feeling better. Labs and imaging reviewed. Indet trops secondary to demand from cocaine and methamphetamine use Polysubstance abuse- counseling provided. Mild elevation of BNP-probably secondary to substance abuse, but will get a baseline ECHO. Expect d/c this pm.
[2018-07-10 01:11] LABS: Medtox Reader # READER 1; Phencyclidine (PCP) Not Detected (NotDetected); THC/Cannabinoid Screen Detected (NotDetected)
[2018-07-10 01:12] LABS: Amphetamine Not Detected (NotDetected); Barbiturates Screen Not Detected (NotDetected); Benzodiazepine Screen Not Detected (NotDetected); Cocaine Metabolite Screen Detected (NotDetected); Medtox Control Line Valid? VALID (VALID); Methadone Not Detected (NotDetected); Methamphetamine Detected (NotDetected); Opiate Screen Not Detected (NotDetected); Oxycodone Screen Not Detected (NotDetected); Tricyclic Screen Not Detected (NotDetected)
[2018-07-10] MEDS ORDERED: Lactated Ringer's 1,000 ML IV SCH (01:45)
[2018-07-10 02:46] LABS: Troponin I 0.035 ng/mL (< 0.028)
[2018-07-10 02:51] LABS: Cardiac Risk 2.2 (Less than 4.5)
[2018-07-10] MEDS ORDERED: Enoxaparin Sodium 40 MG/0.4 ML SYRINGE SC SCH ×2 (03:05→09:00)
[2018-07-10 03:09] VITALS: BMI 25.0
[2018-07-10] MEDS ORDERED: Ondansetron PF 4 MG/2 ML Vial IVP PRN (03:51)
[2018-07-10] MEDS ORDERED: Acetaminophen 325 MG TAB PO PRN (03:51)
[2018-07-10] MEDS ORDERED: Ondansetron ODT 4 MG TAB SL PRN (03:51)
[2018-07-10] MEDS ORDERED: Nitroglycerin 0.4 MG TAB (25 Tab Bottle) SL PRN (03:51)
[2018-07-10 07:49] LABS: Troponin I 0.039 ng/mL (< 0.028)
[2018-07-10] MEDS ORDERED: Famotidine 20 MG TAB PO SCH (09:00)
[2018-07-10] MEDS ORDERED: Famotidine/PF 20 mg/2ml Vial SLOW IVP SCH (09:00)
[2018-07-10] MEDS ORDERED: Aspirin Chewable 81 MG TAB PO SCH (09:00)
[2018-07-10 15:53] VITALS: BP 102/65; TEMP 98.1
--- NOTE | 2018-07-12 14:38 | DIS ---
DATE OF ADMISSION: 07/10/2018 DATE OF DISCHARGE: 07/10/2018 DISCHARGE ATTENDING: Liat Sarabia M.D. RESIDENT: Johann Boyd DO CONSULTS: None. PROCEDURES: Chest x-ray on 07/09, finding, no evidence of infiltrate. Heart and mediastinum unremarkable. No effusion. ADMITTING DIAGNOSES: 1. Indeterminate troponin. SECONDARY DIAGNOSES: 1. Methamphetamine abuse. 2. Cocaine abuse. 3. Marijuana abuse. 4. Tobacco abuse. 5. Alcohol abuse. DISCHARGE MEDICATIONS: None. DISCONTINUED MEDICATIONS: None. HOSPITAL COURSE: This is a 42-year-old male, who presented to the emergency room with complaints of generalized weakness and leg cramps. On admission, his troponins were indeterminate range at 0.039 and were trended down. Initial creatine kinase was 524 and BNP was 161. Toxicology found urine was positive for methamphetamine, cocaine, and cannabinoids. CBC was largely unremarkable. Vital signs were also largely unremarkable. Due to indeterminate troponin, the patient was observed on telemetry. By the following morning, his symptoms had resolved. Reassuring findings on EKG and telemetry. Advised to avoid illicit substances in future and to cut back on alcohol use. Likely his troponins were likely related to the methamphetamine and cocaine. DISCHARGE INSTRUCTIONS: DISCHARGE LOCATION: Home. DIET: Regular. FOLLOWUP: Follow up with PCP within 1 week. Job ID: [id number] [facility]
== END 2018-07-10 17:54 | disposition home or self-care (01) ==
LOC: ERS 22:14 → ERHOLD 07-10 00:13 → 2NO 07-10 02:51
PROVIDERS: ADMIT Family Medicine; ATTEND Family Medicine
DX: R79.89 Other specified abnormal findings of blood chemistry (principal); F15.10 Other stimulant abuse, uncomplicated; F14.10 Cocaine abuse, uncomplicated; F10.10 Alcohol abuse, uncomplicated; F12.10 Cannabis abuse, uncomplicated; F17.210 Nicotine dependence, cigarettes, uncomplicated; E86.0 Dehydration; I10 Essential (primary) hypertension; Z59.0 Homelessness
CPT/HCPCS: 36415; 71045; 80053; 80061; 80306; 80307; 82550; 82553; 83690; 83880; 84484; 85025; 87804; 93005; 93306; 96360; 96361; 96372; G0378; J1650

== ENCOUNTER 2018-08-05 03:22 | Emergency (ER) | payer SELFPAY ==
[2018-08-05] MEDS ORDERED: Ibuprofen 800 MG TAB ONE (05:30)
[2018-08-05] MEDS ORDERED: Dexamethasone 10 MG/ML VIAL ONE (05:30)
== END 2018-08-05 08:12 | disposition home or self-care (01) ==
LOC: ERS 03:22
DX: J02.9 Acute pharyngitis, unspecified (principal); Z71.6 Tobacco abuse counseling; I10 Essential (primary) hypertension; F17.210 Nicotine dependence, cigarettes, uncomplicated
CPT/HCPCS: 99406; J1100

== ENCOUNTER 2018-08-13 04:57 | Emergency (ER) | payer SELFPAY ==
[2018-08-13 05:44] LABS: #Basophils 0.1 thou/uL (0.0-0.2); #Eosinphils 0.1 thou/uL (0.0-0.7); #Monocytes 0.4 thou/uL (0.11-0.59); #Neutrophils 4.1 thou/uL (1.40-6.50); %Basophils 1.2 % (0.0-1.0); %Eosinophils 1.8 % (0.0-10.0); %Lymphocytes 17.6 % (21.0-51.0); %Monocytes 6.7 % (0.0-10.0); %Neutrophils 72.7 % (42.0-75.0); Hemoglobin 12.1 g/dL (14.0-18.0); Mean Corpuscular HGB CONC 33.9 g/dL (32.0-36.0); Mean Corpuscular Volume 94.5 fL (78.0-98.0); Mean Platelet Volume 6.4 fL (7.4-10.4); Platelet Count 318 thou/uL (130-400); RBC Distribution Width 12.6 % (11.5-14.5); Red Blood Cell (RBC) Count 3.78 mill/uL (4.70-6.10); White Blood Cell (WBC) Count 5.6 thou/uL (4.8-10.8)
[2018-08-13 06:05] LABS: ALT (SGPT) 11 U/L (8-55); AST (SGOT) 17 U/L (5-34); Albumin 4.1 g/dL (3.5-5.0); Alkaline Phosphatase 51 U/L (40-150); Anion Gap 12 mmol/L (10-20); BUN (Urea Nitrogen) 10 mg/dL (8.9-20.6); Bilirubin, Total 0.4 mg/dL (0.2-1.2); Calc. Creatinine Clearance 0 mL/min (70-130); Calcium 9.3 mg/dL (7.8-10.44); Carbon Dioxide 27 mmol/L (22-29); Chloride 103 mmol/L (98-107); Estimated GFR-MDRD Greater than 90; Globulin 3.1 g/dL (2.4-3.5); Glucose 110 mg/dL (70-105); Potassium 3.5 mmol/L (3.5-5.1); Protein, Total 7.2 g/dL (6.0-8.3); Sodium 138 mmol/L (136-145)
[2018-08-13 07:10] LABS: Acetaminophen Less than 6.0 mcg/mL (10.0-30.0); Alcohol Less than 10 mg/dL (Less than 10); Salicylate Less than 8.0 mg/dL (15.0-30.0)
[2018-08-13] MEDS ORDERED: cefTRIAXone\\ROCEPHIN 1 GM VIAL ONE (07:26)
--- NOTE | 2018-08-13 07:39 | RAD ---
FExam: Chest one view HISTORY:Cough Comparison: 07/09/2018 FINDINGS: Cardiac silhouette: Normal Pulmonary vessels: Normal Costophrenic angles: Clear LUNGS: Left lower lobe infiltrate with partial obscuration of left hemidiaphragm. Pneumothorax: None Osseous abnormalities: None IMPRESSION: 1. Left lower lobe opacity likely due to infiltrate. Continued surveillance to ensure resolution.
== END 2018-08-13 08:11 | disposition home or self-care (01) ==
LOC: ERS 04:57
DX: J18.9 Pneumonia, unspecified organism (principal); I10 Essential (primary) hypertension; F17.210 Nicotine dependence, cigarettes, uncomplicated
CPT/HCPCS: 36415; 71045; 80053; 80307; 83605; 84443; 85025; 93005; 96365; J0696

== ENCOUNTER 2019-03-07 11:47 | Emergency (ER) | payer SELFPAY ==
[2019-03-07] MEDS ORDERED: Acetaminophen 500 MG TAB ONE (12:19)
--- NOTE | 2019-03-07 12:25 | RAD ---
XR Chest Pa Lat STANDARD HISTORY: Cough COMPARISON: 08/13/2018 FINDINGS: The heart size is normal. The lungs are well expanded without focal areas of consolidation, pneumothorax or pleural effusions. IMPRESSION: No radiographic evidence of acute cardiopulmonary process.
== END 2019-03-07 12:56 | disposition home or self-care (01) ==
LOC: ERS 11:47
DX: R05 Cough (principal); I10 Essential (primary) hypertension
CPT/HCPCS: 71046

== ENCOUNTER 2019-03-15 21:25 | Emergency (ER) | payer SELFPAY | END 2019-03-15 22:07 | LOC: ERS 21:25 | DX: F14.10 Cocaine abuse, uncomplicated (principal); I10 Essential (primary) hypertension; Z79.51 Long term (current) use of inhaled steroids | CPT/HCPCS: 99283 ==

== ENCOUNTER 2019-11-19 18:45 | Emergency (ER) | payer SELFPAY | END 2019-11-19 21:05 | disposition home or self-care (01) | LOC: ERS 18:45 | DX: I10 Essential (primary) hypertension (principal); M54.2 Cervicalgia | CPT/HCPCS: 99281 ==

== ENCOUNTER 2019-11-23 20:21 | Emergency (ER) | payer SELFPAY ==
[2019-11-23 21:32] LABS: #Basophils 0.1 thou/uL (0.0-0.2); #Eosinphils 0.3 thou/uL (0.0-0.7); #Lymphocytes 1.4 thou/uL (1.20-3.40); #Monocytes 0.5 thou/uL (0.11-0.59); #Neutrophils 2.7 thou/uL (1.40-6.50); %Basophils 1.2 % (0.0-1.0); %Eosinophils 6.8 % (0.0-10.0); %Lymphocytes 28.2 % (21.0-51.0); %Monocytes 9.7 % (0.0-10.0); Mean Corpuscular HGB CONC 33.1 g/dL (32.0-36.0); Mean Corpuscular Hemoglobin 32.1 pg (27.0-31.0); Mean Corpuscular Volume 96.9 fL (78.0-98.0); Mean Platelet Volume 7.2 fL (7.4-10.4); Platelet Count 271 thou/uL (130-400); Red Blood Cell (RBC) Count 4.05 mill/uL (4.70-6.10); White Blood Cell (WBC) Count 5.1 thou/uL (4.8-10.8)
[2019-11-23 21:41] LABS: ALT (SGPT) 15 U/L (8-55); AST (SGOT) 19 U/L (5-34); Albumin 4.1 g/dL (3.5-5.0); Alkaline Phosphatase 55 U/L (40-110); Anion Gap 12 mmol/L (10-20); BUN (Urea Nitrogen) 20 mg/dL (8.9-20.6); Bilirubin, Total 0.3 mg/dL (0.2-1.2); Calc. Creatinine Clearance 0 mL/min (70-130); Calcium 8.2 mg/dL (7.8-10.44); Carbon Dioxide 26 mmol/L (22-29); Chloride 106 mmol/L (98-107); Estimated GFR-MDRD 71; Globulin 2.9 g/dL (2.4-3.5); Glucose 87 mg/dL (70-105); Potassium 3.8 mmol/L (3.5-5.1); Sodium 140 mmol/L (136-145)
[2019-11-23] MEDS ORDERED: Benzocaine 20% Spray 60 ML CAN ONE (22:52)
[2019-11-24] MEDS ORDERED: Meclizine HCl 25 MG TAB ONE (00:09)
== END 2019-11-24 01:16 | disposition home or self-care (01) ==
LOC: ERS 20:21
DX: E86.0 Dehydration (principal); R55 Syncope and collapse; I10 Essential (primary) hypertension
CPT/HCPCS: 36415; 80053; 84484; 85025; 93005; 96360; 96361

== ENCOUNTER 2020-01-06 01:32 | Emergency (ER) | payer SELFPAY | END 2020-01-06 01:45 | disposition home or self-care (01) | LOC: ERS 01:32 | DX: R25.2 Cramp and spasm (principal); I10 Essential (primary) hypertension; Z79.899 Other long term (current) drug therapy | CPT/HCPCS: 99283 ==

== ENCOUNTER 2021-03-05 05:00 | Emergency (ER) | payer SELFPAY ==
[2021-03-05 05:46] LABS: #Basophils 0.1 thou/uL (0.0-0.2); #Eosinphils 0.1 thou/uL (0.0-0.7); #Lymphocytes 1.5 thou/uL (1.20-3.40); #Monocytes 0.8 thou/uL (0.11-0.59); #Neutrophils 5.6 thou/uL (1.40-6.50); %Basophils 0.9 % (0.0-1.0); %Eosinophils 0.6 % (0.0-10.0); %Lymphocytes 18.7 % (21.0-51.0); %Monocytes 9.5 % (0.0-10.0); %Neutrophils 70.2 % (42.0-75.0); Hemoglobin 13.5 g/dL (14.0-18.0); Mean Corpuscular Hemoglobin 33.3 pg (27.0-31.0); Mean Corpuscular Volume 95.1 fL (78.0-98.0); Mean Platelet Volume 6.7 fL (7.4-10.4); Platelet Count 366 thou/uL (130-400); RBC Distribution Width 12.5 % (11.5-14.5); Red Blood Cell (RBC) Count 4.06 mill/uL (4.70-6.10)
[2021-03-05 06:03] LABS: ALT (SGPT) 17 U/L (8-55); AST (SGOT) 29 U/L (5-34); Albumin 4.8 g/dL (3.5-5.0); Alkaline Phosphatase 65 U/L (40-110); Anion Gap 18 mmol/L (10-20); BUN (Urea Nitrogen) 14 mg/dL (8.9-20.6); Bilirubin, Total 0.6 mg/dL (0.2-1.2); Calc. Creatinine Clearance 0 mL/min (70-130); Calcium 9.8 mg/dL (7.8-10.44); Carbon Dioxide 21 mmol/L (22-29); Chloride 103 mmol/L (98-107); Globulin 3.4 g/dL (2.4-3.5); Glucose 90 mg/dL (70-105); Potassium 4.8 mmol/L (3.5-5.1); Protein, Total 8.2 g/dL (6.0-8.3); Sodium 137 mmol/L (136-145)
== END 2021-03-05 06:29 | disposition home or self-care (01) ==
LOC: ERS 05:00
DX: R07.89 Other chest pain (principal); R00.2 Palpitations; I10 Essential (primary) hypertension; F17.210 Nicotine dependence, cigarettes, uncomplicated
CPT/HCPCS: 71045; 80053; 84484; 85025; 93005

== ENCOUNTER 2023-09-24 16:12 | Emergency (ER) | payer SELFPAY ==
[2023-09-24] MEDS ORDERED: Ketorolac Tromethamine 30 MG (1 mL) VIAL ONE (16:31)
== END 2023-09-24 17:10 | disposition home or self-care (01) ==
LOC: ERS 16:12
DX: S29.011A Strain of muscle and tendon of front wall of thorax, initial encounter (principal); I10 Essential (primary) hypertension; F17.210 Nicotine dependence, cigarettes, uncomplicated; W18.30XA Fall on same level, unspecified, initial encounter
CPT/HCPCS: 96372; J1885